=== PATIENT | female | born 1995 | race Two or more races ===

== ENCOUNTER 2025-09-16 08:12 | Emergency (ER) | payer OTHER ==
[~2025-09-16] VITALS: Ht 162.6 cm; Wt 59.0 kg
[2025-09-16] MEDS ORDERED: GUAIFENESIN 200 MG/10 ML BLIST.PACK PO ONE ×2 (10:00→10:10)
[2025-09-16] MEDS ORDERED: FAMOTIDINE/PF 20 MG/2 ML VIAL IV ONE (10:00)
[2025-09-16] MEDS ORDERED: 0.9 % SODIUM CHLORIDE 1,000 ML IV SCH (10:00)
[2025-09-16] MEDS ORDERED: FAMOTIDINE/PF 20 MG/2 ML VIAL ONE (10:11)
[2025-09-16 10:35] LABS: BASO % 0.3 % (0.1-1.2); EOS # 0.00 (0.04-0.54); EOS % 0.0 % (0.7-7.0); LYMPH # 0.67 (1.18-3.74); LYMPH % 18.1 % (19.3-53.1); MEAN PLATELET VOLUME 9.50 fl (9.4-12.4); MONO # 0.44 (0.24-0.82); MONO % 11.9 % (4.7-12.5); NEUT # 2.58 (1.56-6.13); NEUT % 69.4 % (34.0-71.1); RED CELL DISTRIBUTION WIDTH 12.1 % (11.6-14.4)
[2025-09-16 11:09] LABS: ALT/SGPT 23.0 U/L (12-78); AST/SGOT 18.0 U/L (15-37); BILIRUBIN TOTAL 0.2 mg/dL (0.3-1.2); BUN CREA RATIO 7.0 (7.0-25.0); CREATININE SERUM 0.73 mg/dL (0.55-1.02); GFR 92.99; GLOBULINA 4.2 G/DL (2.4-3.5); GLUCOSE FASTING 99.0 mg/dL (65-100); OSMOLALITY SERUM 275.0 MOSM/KG (275-295)
[2025-09-16 11:20] LABS: COVID-19 AG NEGATIVE (NEGATIVE)
[2025-09-16] MEDS ORDERED: INTESTINEX680 M1 PO (12:12)
[2025-09-16] MEDS ORDERED: PEPCID AC20 MG PO (12:12)
[2025-09-16] MEDS ORDERED: OSEL75CA PO (12:12)
[2025-09-16] MEDS ORDERED: MUCINEX D ER 11 EACH PO (12:12)
== END 2025-09-16 12:50 | disposition home or self-care (01) ==
LOC: ER 08:12
PROVIDERS: Student in an Organized Health Care Education/Training Program
DX: B34.9 Viral infection, unspecified (principal); R50.9 Fever, unspecified; R05.8 Other specified cough; Z20.822 Contact with and (suspected) exposure to COVID-19
CPT/HCPCS: 36415; 96365; 96366; 99282; J3490; J7030